=== PATIENT | female | born 1960 | race Caucasian/White ===

== ENCOUNTER 2017-09-27 21:32 | Emergency (ER) | payer BC ==
[2017-09-27 21:47] VITALS: BP 156/74
[2017-09-27] MEDS ORDERED: Cephalexin CAP* 500 MG PO ONE ×2 (21:59)
--- NOTE | 2017-09-27 21:59 | UC ---
Complaint Female HPI - HPI Summary HPI Summary: 57 yo female with 2-3 day hx of dysuria/urgency and frequency no f/c no n/v/d hx bladder CA - History Of Current Complaint Stated Complaint: URINARY COMPLAINT Hx Obtained From: Patient Onset/Duration: Gradual Onset, Lasting Days Timing: Intermittent Severity Initially: Mild Severity Currently: None Pain Intensity: 8 - when urinating Character: Burning Aggravating Factor(s): Urination Associated Signs And Symptoms: Positive: Negative Related Hx: Similar Episode/Dx as: - UTI - Allergies/Home Medications Allergies/Adverse Reactions: Allergies Allergy/AdvReac Type Severity Reaction Status Date / Time No Known Allergies Allergy Verified 09/27/17 21:45 Home Medications: Home Medications Ibuprofen/Diphenhydramine Cit [Advil Pm Caplet] 1 each PO DAILY 09/27/17 [ History Confirmed 09/27/17] PMH/Surg Hx/FS Hx/Imm Hx Previously Healthy: Yes Other Cancer History: BLADDER - Surgical History Surgical History: Yes Surgery Procedure, Year, and Place: TUBAL LIGATION. BLADDER TUMOR REMOVED. Wrist tumor removal - Family History Known Family History: Positive: Cardiac Disease, Other - lung ca - Social History Alcohol Use: Occasionally Substance Use Type: None Smoking Status (MU): Heavy Every Day Tobacco Smoker Type: Cigarettes Amount Used/How Often: 1/2ppd Length of Time of Smoking/Using Tobacco: started age 89 Have You Smoked in the Last Year: Yes Household Exposure Type: Cigarettes - Immunization History Hx Tetanus, Diphtheria Vaccination: Yes Vaccination Up to Date: Yes Review of Systems Constitutional: Negative Skin: Negative Eyes: Negative ENT: Negative Respiratory: Negative Cardiovascular: Negative Gastrointestinal: Negative Genitourinary: Dysuria, Frequency, Urgency Motor: Negative Neurovascular: Negative Musculoskeletal: Negative Neurological: Negative Psychological: Negative Is Patient Immunocompromised?: No All Other Systems Reviewed And Are Negative: Yes Physical Exam Triage Information Reviewed: Yes Appearance: Well-Appearing, No Pain Distress, Well-Nourished Vital Signs: Initial Vital Signs Temp 99.7 F 09/27/17 21:40 Pulse 88 09/27/17 21:40 Resp 20 09/27/17 21:40 BP 156/74 09/27/17 21:40 Pulse Ox 99 09/27/17 21:40 Vital Signs Reviewed: Yes Eyes: Positive: Conjunctiva Clear ENT: Positive: Hearing grossly normal, Pharynx normal. Negative: Nasal drainage , Trismus, Muffled voice, Hoarse voice Respiratory: Positive: Lungs clear, Normal breath sounds, No respiratory distress Cardiovascular: Positive: RRR, No Murmur Abdomen Description: Positive: Nontender, No Organomegaly. Negative: CVA Tenderness (R), CVA Tenderness (L) Bowel Sounds: Positive: Present Musculoskeletal: Positive: ROM Intact, No Edema Neurological: Positive: Alert Psychological Exam: Normal Skin Exam: Normal Diagnostics - Laboratory Diagnostic Studies Completed/Ordered: urine +++RBC,+++protein, +nitrite, +leuks Complaint Female Dx - Differential Dx/Diagnosis Provider Diagnoses: dysuria. suspect UTI Discharge - Sign-Out/Discharge Documenting (check all that apply): Discharge/Admit/Transfer - Discharge Plan Condition: Stable Disposition: HOME Prescriptions: Cephalexin CAP* [Keflex CAP*] 500 mg PO BID #12 cap Phenazopyridine TAB* [Pyridium TAB*] 100 mg PO TID #4 tab Patient Education Materials: Urinary Tract Infection in Women (ED) Referrals: No Primary Care Phys,NOPCP [Primary Care Provider] - Additional Instructions: I suspect you have a UTI Given your history or bladder cancer please give us a call to check on your culture in 2-3 days I suggest you get your urine rechecked by your MD in 2 weeks to make sure it is normal - Billing Disposition and Condition Condition: STABLE Disposition: Home
[2017-09-27] MEDS ORDERED: Phenazopyridine TAB* 100 MG PO ONE ×2 (22:00)
== END 2017-09-27 22:12 | disposition home or self-care (01) ==
LOC: UCCORT 21:32
DX: R30.0 Dysuria (principal); F17.210 Nicotine dependence, cigarettes, uncomplicated
CPT/HCPCS: 81003; 87077; 87086; 87186; 99213; A9270-GY; G0463

== ENCOUNTER 2018-05-17 11:47 | Emergency (ER) | payer BC ==
[2018-05-17 12:54] VITALS: BP 128/66
--- NOTE | 2018-05-17 13:17 | UC ---
Respiratory Complaint HPI - HPI Summary HPI Summary: 2 mo .hx of cough, post nasal drip. Reports feeling ill but that its intermittent. has not had to use inhaler - History of Current Complaint Chief Complaint: UCRespiratory Stated Complaint: COUGH,SINUS COMPLAINT Time Seen by Provider: 05/17/18 12:58 Hx Obtained From: Patient Onset/Duration: Gradual Onset Pain Intensity: 0 Character: Cough: Nonproductive Aggravating Factors: Nothing Alleviating Factors: Nothing - Allergies/Home Medications Allergies/Adverse Reactions: Allergies Allergy/AdvReac Type Severity Reaction Status Date / Time No Known Allergies Allergy Verified 05/17/18 12:53 PMH/Surg Hx/FS Hx/Imm Hx Previously Healthy: Yes - Surgical History Surgical History: Yes Surgery Procedure, Year, and Place: TUBAL LIGATION. BLADDER TUMOR REMOVED. Wrist tumor removal - Family History Known Family History: Positive: Cardiac Disease, Other - lung ca - Social History Alcohol Use: Occasionally Substance Use Type: None Smoking Status (MU): Heavy Every Day Tobacco Smoker Type: Cigarettes Amount Used/How Often: 1/2ppd Length of Time of Smoking/Using Tobacco: started age 89 Have You Smoked in the Last Year: Yes Household Exposure Type: Cigarettes - Immunization History Hx Tetanus, Diphtheria Vaccination: Yes Vaccination Up to Date: Yes Review of Systems All Other Systems Reviewed And Are Negative: Yes Constitutional: Positive: Negative Skin: Negative: Rash ENT: Negative: Sore Throat, Ear Ache, Nasal Discharge, Sinus Congestion Respiratory: Positive: Cough. Negative: Shortness Of Breath Cardiovascular: Positive: Negative Gastrointestinal: Negative: Abdominal Pain, Vomiting, Diarrhea Genitourinary: Negative: Dysuria Physical Exam - Summary Physical Exam Summary: +smells like smoke Triage Information Reviewed: Yes Appearance: Well-Appearing Vital Signs: Initial Vital Signs Temp 98.3 F 05/17/18 12:49 Pulse 72 05/17/18 12:49 Resp 18 05/17/18 12:49 BP 128/66 05/17/18 12:49 Pulse Ox 100 05/17/18 12:49 Vital Signs Reviewed: Yes Eyes: Positive: Conjunctiva Clear ENT: Positive: Pharynx normal Respiratory Exam: Normal Cardiovascular Exam: Normal Skin: Negative: Rashes UC Diagnostic Evaluation - Laboratory O2 Sat by Pulse Oximetry: 100 Respiratory Course/Dx - Course Course Of Treatment: 2 mo. hx of cough in a smoker. xray unremarkable. viral in etiology but may have some RAD. albuterol for now and should get possible lung volume testing. Good vitals, exam unremarkable. - Differential Dx/Diagnosis Differential Diagnosis/HQI/PQRI: Bronchitis, Lower Resp Infection, Sinusitis, Other - post nasal drip Provider Diagnosis: Chronic cough Discharge - Sign-Out/Discharge Documenting (check all that apply): Patient Departure All imaging exams completed and their final reports reviewed: Yes - Discharge Plan Condition: Good Disposition: HOME Prescriptions: Albuterol HFA INHALER* [Ventolin HFA Inhaler*] 2 puff INH Q4H PRN #1 mdi PRN Reason: Cough Patient Education Materials: Chronic Cough (ED) Referrals: No Primary Care Phys,NOPCP [Primary Care Provider] - Additional Instructions: Please follow up with your pcp to discuss further evaluation given the duration of your cough. your xrays are normal. - Billing Disposition and Condition Condition: GOOD Disposition: Home
== END 2018-05-17 13:55 | disposition home or self-care (01) ==
LOC: UCCORT 11:47
DX: R05 Cough (principal); F17.210 Nicotine dependence, cigarettes, uncomplicated
CPT/HCPCS: 71046; 99212; G0463